=== PATIENT | female | born 1960 | race Caucasian/White ===

== ENCOUNTER → 2017-02-25 08:33 | Outpatient (CLI) | payer MEDICAID ==
--- NOTE | 2017-02-26 12:45 | EC ---
PATIENT:SRINI FRIED DATE OF SERVICE: 02/25/17 SEX: F MEDICAL RECORD: [id number] DATE OF : 56 [facility] AGE OF PATIENT: 56 ADMISSION DATE: 02/25/17 REFERRING PHYSICIAN: INTERPRETING PHYSICIAN: ERIBERTO GARCIA MD ECHOCARDIOGRAM REPORT ECHO CHARGES 4 ECHO COMPLETE CLINICAL DIAGNOSIS: CP/HTN ECHOCARDIOGRAPHIC MEASUREMENTS (adult normal given) AC root (d.<3.7cm) 2.7 cm LV Septum d (<1.2 cm> 1.3 cm Valve Excursion 1.6 cm LV Septum (systole) 2.0 cm Left Atria (s.<4.0cm> 3.7 cm LVPW d(<1.2cm) 1.1 cm RV (d.<2.3cm) 2.7 cm LVPW (sytole) 2.0 cm LV diastole(<5.6CM) 4.4 cm MV E-F(>70mm/sec) cm LV systole 2.0 cm LVOT Diameter 1.8 cm MV exc.(>10mm) cm Est.ejection fraction (50-75%) % Pericardial Effusion N DOPPLER: LVIT cm/sec A 81.0 cm/sec E 78.0 cm/sec LA cm/sec RVSP 33.0 mmHg LVOT 130 cm/sec AOP1/2T m/s Asc. Ao 165 cm/sec RVOT 58.0 cm/sec RA cm/sec PA 97.0 cm/sec AV Gradient Peak 11.0 mmHg AV Mean 5.0 mmHg AV Area 1.9 cm MV Gradient Peak 2.8 mmHg MV Mean 1.3 mmHg MV Area cm COMMENTS: Weather Teacher: Maximilian BARRETOOE Game Warden: Bria Garcia TAPE# PACS DATE OF SERVICE: 02/25/2017 PROCEDURE: Transthoracic echocardiogram. FINDINGS: 1. The left ventricle is normal size, normal function, ejection fraction of 60% to 65%. 2. Inflow characteristics show mild diastolic dysfunction. 3. The mitral valve is structurally normal with no significant mitral regurgitation. ECHOCARDIOGRAM REPORT [id number] SRINI FRIED 4. Tricuspid valve is normal with normal right ventricular systolic pressures. 5. The right atrium and right ventricle is normal size and normal function. 6. The pericardium and pulmonary valve are normal. 7. The IVC is normal. CONCLUSIONS: This is a normal echocardiogram. TRANSINT:[id number] Voice Confirmation ID: [id number] DOCUMENT ID: [id number] ERIBERTO GARCIA MD at 1245 CC: [id number] DICTATION DATE: 02/26/17 0755 TRIM AND BURR OPERATOR: 02/26/17 0813 DEP CLI 02/25/17 [id number] [place] [address]
== END | disposition home or self-care (01) ==
LOC: D.ECHO 02-24 10:35
DX: R07.9 Chest pain, unspecified (principal); I10 Essential (primary) hypertension

== ENCOUNTER → 2019-08-08 08:46 | Outpatient (CLI) | payer MEDICAID | END | disposition home or self-care (01) | LOC: D.MRI 08:46 | PROVIDERS: ATTEND Clinical Nurse Specialist Family Health | DX: M54.16 Radiculopathy, lumbar region (principal) ==

== ENCOUNTER 2020-01-23 19:46 | Emergency (ER) | payer MEDICAID ==
[~2020-01-23] VITALS: Ht 154.9 cm; Wt 68.2 kg
[2020-01-23 19:58] VITALS: Ht 154.9 cm; Wt 68.2 kg
[2020-01-23] MEDS ORDERED: CLINDAMYCIN HC300 MG PO (20:45)
[2020-01-23 20:59] VITALS: BP 119/82
== END 2020-01-23 20:59 | disposition home or self-care (01) ==
LOC: D.ER 19:46
DX: S81.012A Laceration without foreign body, left knee, initial encounter (principal); W19.XXXA Unspecified fall, initial encounter; Y93.9 Activity, unspecified; Y92.9 Unspecified place or not applicable